=== PATIENT | female | born 1950 | race Caucasian/White ===

== ENCOUNTER 2018-01-19 23:52 | Emergency (ER) | payer OTHER ==
[~2018-01-19] VITALS: Ht 165.1 cm; Wt 55.0 kg
[2018-01-19 23:59] VITALS: Ht 165.1 cm; Wt 55.0 kg
[2018-01-20] MEDS ORDERED: ADVIN10/60 INH (00:10)
[2018-01-20] MEDS ORDERED: SUMA100T16 PO (00:11)
[2018-01-20 00:15] VITALS: O2SAT 98
[2018-01-20] MEDS ORDERED: ACETAMINOPHEN 1000 MG/100 ML IV IV ONE (00:24)
[2018-01-20 00:27] LABS: BASO % 0.2 %; BASO ABS # 0.01 K/uL (0-0.2); EOS % 1.9 %; HEMATOCRIT 37.8 % (37-47); HEMOGLOBIN 13.5 g/dL (12.0-16.0); IG# 0.01 K/uL (0.00-0.02); LYMPH ABS # 1.53 K/uL (1.2-3.4); MEAN CELL VOLUME 89.2 fL (80-100); MEAN CORPUSCULAR HEMOGLOBIN 31.8 pg (25-34); MEAN CORPUSCULAR HGB CONC 35.7 g/dl (32-36); MEAN PLATELET VOLUME 9.2 fL (7.4-10.4); MONO % 8.7 %; MONO ABS # 0.46 K/uL (0.11-0.59); NEUT ABS # 3.17 K/uL (1.4-6.5); PLATELET COUNT 253 K/uL (130-400); RED CELL DISTRIBUTION WIDTH SD 38.6 fL (36.4-46.3); WHITE BLOOD COUNT 5.28 K/uL (4.8-10.8)
[2018-01-20] MEDS ORDERED: KETOROLAC TROMETHAMINE 15 MG/ML VIAL IV ONE (00:30)
[2018-01-20] MEDS ORDERED: ACETAMINOPHEN IV 1,000 MG in EMPTY BAG 0 ML IV ONE (00:30)
[2018-01-20] MEDS ORDERED: SODIUM CHLORIDE 0.9% 1000ML 1,000 ML IV ONE ×2 (00:30)
[2018-01-20 00:58] LABS: ALBUMIN 3.4 gm/dl (3.4-5.0); ALKALINE PHOSPHATASE 74 U/L (45-117); ALT/SGPT 25 U/L (12-78); AST/SGOT 21 U/L (15-37); BLOOD UREA NITROGEN 11 mg/dl (7-18); CALCIUM 8.5 mg/dl (8.5-10.1); CARBON DIOXIDE 23 mmol/L (21-32); CREATININE 0.85 mg/dl (0.60-1.20); GLUCOSE 100 mg/dl (70-99); POTASSIUM 3.5 mmol/L (3.5-5.1); SODIUM 135 mmol/L (136-145); TOTAL PROTEIN 7.1 gm/dl (6.4-8.2)
[2018-01-20] MEDS ORDERED: OPTIRAY 320 IV PRN (01:30)
[2018-01-20 01:45] VITALS: TEMP 36.7
[2018-01-20 02:35] VITALS: BP 132/76; PULSE 79; O2SAT 99
--- NOTE | 2018-01-20 06:15 | EMERGENCY ROOM VISIT NOTE ---
History First contact with patient: 00:04 Chief Complaint: FLU LIKE SX Stated Complaint: FLU LIKE SYMPTOMS History of Present Illness The patient is a 67 year old female who presents to the Emergency Room with complaints of malaise and fatigue after being diagnosed with influenza B6 days ago. The patient states that she was feeling unwell about 7 days ago, and the began running a low-grade fever at home. She went to an urgent care clinic in [place] and was diagnosed with influenza B. The patient has been taking ibuprofen and Tylenol fairly regularly since the diagnosis. She has been hydrating well, but still feels like she has a dry mouth. She began having some difficulty breathing today, and began using her Advair inhaler. She does have a history of COPD. The patient has not had fever or chills for the past few days. She does not have sinus congestion, ear pain, sore throat, coughing, or wheezing. No abdominal pain. She considers herself usually healthy and is concerned something else may be wrong. She rates her discomfort an 8/10. Review of Systems More than 10 systems were reviewed and otherwise negative with the exception of history of present illness. Past Medical/Surgical History History of COPD Family History No pertinent family history Social History Housing Status: lives alone Current/Historical Medications Scheduled Sumatriptan Succinate (Imitrex), 100 MG PO PRN Scheduled PRN Fluticasone Prop/Salmeterol (Advair Diskus 100/50 60 Dose), 1 PUFFS INH BID PRN for SOB/Wheezing Physical Exam Vital Signs Date Time Temp Pulse Resp B/P (MAP) Pulse Ox O2 Delivery O2 Flow Rate FiO2 01/20/18 02:35 79 18 132/76 99 01/20/18 01:45 36.7 81 18 142/79 100 Room Air 01/20/18 00:25 71 01/20/18 00:15 98 Room Air 01/19/18 23:59 36.6 77 20 148/86 100 Room Air Physical Exam VITALS: Vitals are noted on the nurse's note and reviewed by myself. Vital signs stable. GENERAL: Well-developed, well-nourished, white female, who is in no acute distress and resting comfortably. Patient is cooperative with the examination. HEAD: Normocephalic atraumatic. EARS: External ear normal. External auditory canals clear, tympanic membranes pearly silverio without erythema or effusion bilaterally. EYES: Pupils equal round and reactive to light and accommodation. Conjunctivae without injection, sclerae without icterus. Extraocular movements intact. NOSE: Patent, turbinates without inflammation or discharge. MOUTH: Mucous membranes moist. Tonsils are not enlarged. Pharynx without erythema, blood, or exudate. Uvula midline. Airway patent. NECK: Supple without nuchal rigidity. No lymphadenopathy. No thyromegaly. Cervical spine is nontender. HEART: Regular rate and rhythm without murmurs gallops or rubs. LUNGS: Clear to auscultation bilaterally without wheezes, rales or rhonchi. No retractions or accessory muscle use. ABDOMEN: Positive normal bowel sounds x 4. Soft, nontender, without masses or organomegaly. No guarding or rebound tenderness. Medical Decision & Procedures ER Provider Diagnostic Interpretation: Preliminary Findings Only See Final Report For Complete Findings CTA CHEST: Peribronchial thickening without infiltrate No PE Laboratory Results 01/20/18 00:15 Red Blood Count 4.24, Mean Corpuscular Volume 89.2, Mean Corpuscular Hemoglobin 31.8, Mean Corpuscular Hemoglobin Concent 35.7, Mean Platelet Volume 9.2, Neutrophils (%) (Auto) 60.0, Lymphocytes (%) (Auto) 29.0, Monocytes (%) (Auto) 8.7, Eosinophils (%) (Auto) 1.9, Basophils (%) (Auto) 0.2, Neutrophils # (Auto) 3.17, Lymphocytes # (Auto) 1.53, Monocytes # (Auto) 0.46, Eosinophils # (Auto) 0.10, Basophils # (Auto) 0.01 01/20/18 00:15 Test 01/20/18 00:15 01/20/18 00:47 White Blood Count 5.28 K/uL (4.8-10.8) Red Blood Count 4.24 M/uL (4.2-5.4) Hemoglobin 13.5 g/dL (12.0-16.0) Hematocrit 37.8 % (37-47) Mean Corpuscular Volume 89.2 fL (80-100) Mean Corpuscular Hemoglobin 31.8 pg (25-34) Mean Corpuscular Hemoglobin Concent 35.7 g/dl (32-36) Platelet Count 253 K/uL (130-400) Mean Platelet Volume 9.2 fL (7.4-10.4) Neutrophils (%) (Auto) 60.0 % Lymphocytes (%) (Auto) 29.0 % Monocytes (%) (Auto) 8.7 % Eosinophils (%) (Auto) 1.9 % Basophils (%) (Auto) 0.2 % Neutrophils # (Auto) 3.17 K/uL (1.4-6.5) Lymphocytes # (Auto) 1.53 K/uL (1.2-3.4) Monocytes # (Auto) 0.46 K/uL (0.11-0.59) Eosinophils # (Auto) 0.10 K/uL (0-0.5) Basophils # (Auto) 0.01 K/uL (0-0.2) RDW Standard Deviation 38.6 fL (36.4-46.3) RDW Coefficient of Variation 12.0 % (11.5-14.5) Immature Granulocyte % (Auto) 0.2 % Immature Granulocyte # (Auto) 0.01 K/uL (0.00-0.02) D-Dimer 850 ug/L FEU (0-500) Anion Gap 9.0 mmol/L (3-11) Est Creatinine Clear Calc Drug Dose 55.8 ml/min Estimated GFR () 82.2 Estimated GFR (Non- 70.9 BUN/Creatinine Ratio 12.9 (10-20) Calcium Level 8.5 mg/dl (8.5-10.1) Magnesium Level 2.1 mg/dl (1.8-2.4) Total Bilirubin 0.5 mg/dl (0.2-1) Aspartate Amino Transf (AST/SGOT) 21 U/L (15-37) Alanine Aminotransferase (ALT/SGPT) 25 U/L (12-78) Alkaline Phosphatase 74 U/L (45-117) Troponin I < 0.015 ng/ml (0-0.045) Total Protein 7.1 gm/dl (6.4-8.2) Albumin 3.4 gm/dl (3.4-5.0) Globulin 3.7 gm/dl (2.5-4.0) Albumin/Globulin Ratio 0.9 (0.9-2) Lyme Disease IgG Antibody NEG (NEG) Lyme Disease IgM Antibody NEG (NEG) Urine Color YELLOW Urine Appearance CLEAR (CLEAR) Urine pH 7.0 (4.5-7.5) Urine Specific [place] 1.007 (1.000-1.030) Urine Protein NEG (NEG) Urine Glucose (UA) NEG (NEG) Urine Ketones NEG (NEG) Urine Occult Blood NEG (NEG) Urine Nitrite NEG (NEG) Urine Bilirubin NEG (NEG) Urine Urobilinogen NEG (NEG) Urine Leukocyte Esterase TRACE (NEG) Urine WBC (Auto) 0 /hpf (0-5) Urine RBC (Auto) 0-4 /hpf (0-4) Urine Hyaline Casts (Auto) 0 /lpf (0-5) Urine Epithelial Cells (Auto) 0-5 /lpf (0-5) Urine Bacteria (Auto) NEG (NEG) Medications Administered Medications (Trade) Dose Ordered Sig/Camryn Route Start Time Stop Time Status Last Admin Dose Admin Sodium Chloride 1,000 ml @ 999 mls/hr Q1H1M ONCE IV 01/20/18 00:30 01/20/18 01:30 DC 01/20/18 00:23 999 MLS/HR Sodium Chloride 1,000 ml @ 999 mls/hr Q1H1M ONCE IV 01/20/18 00:30 01/20/18 01:30 DC 01/20/18 00:24 999 MLS/HR Acetaminophen 1000 mg/Empty Bag 100 ml @ 400 mls/hr NOW ONCE IV 01/20/18 00:30 01/20/18 00:44 DC 01/20/18 00:25 400 MLS/HR ED Course Physical exam and history were performed. Nursing notes, EMR, and Medication List were personally reviewed. Patient appears to have flulike symptoms for the past week. The patient has been taking ibuprofen and Tylenol at home, but has not had some for several hours. IV access was established and labs are obtained. The patient was hydrated and medicated as above. Chest x-ray was performed because she does have a history of COPD. The patient's blood work is as above and was reviewed. She does not have a significantly elevated white blood cell count, gross anemia, bandemia, or significant electrolyte imbalance. Transaminases are not diagnostic. Her chest x-ray was reviewed by myself and does not show significant acute process with radiology read pending. EKG was performed and did not show evidence of acute cardiac event. Troponin 1 is negative. Her d-dimer was elevated, and I did elect perform a CT scan to better evaluate her findings. CT scan does not show evidence of acute pulmonary embolism or other findings to explain her symptoms. Overall the patient appears well for discharge home. I suspect that this is the sequela of her influenza diagnosis and she should do well with conservative care. Of note the patient was able to sleep here in the ER very comfortably and continued to remain nontoxic. The patient was asked to follow with her primary care physician in the next few days for recheck. She was otherwise invited back to the ER with any new, worsening, or concerning symptoms. The chart was completed utilizing [employer] Speech Voice Recognition Software. Grammatical errors, random word insertions, pronoun errors, and incomplete sentences are an occasional consequence of this system due to software limitations, ambient noise, and hardware issues. Any formal questions or concerns about the content, text, or information contained within the body of this dictation should be directly addressed to the provider for clarification. . Medical Decision Differential diagnosis: Etiologies such as viral syndrome, otitis, pharyngitis, pneumonia, influenza, meningitis, urinary tract infection, sepsis, bacteremia, as well as others were entertained. Impression Primary Impression: Influenza-like symptoms Departure Information Dispostion Home / Self-Care Condition GOOD Referrals No Doctor, Assigned (PCP) Forms HOME CARE DOCUMENTATION FORM, IMPORTANT VISIT INFORMATION Patient Instructions My [facility] Additional Instructions You were seen and evaluated today on an emergency basis only. This is not a substitute for, or an effort to provide, complete comprehensive medical care. It is not possible to recognize and treat all injuries or illnesses in a single emergency department visit. For this reason it is recommended that you followup with your primary care physician this week for recheck of your condition. For baseline pain relief you may alternate ibuprofen and acetaminophen every 4 hours for pain control. Take 600 mg ibuprofen (Advil) and then 4 hours later take 1000 mg acetaminophen (Tylenol). Do not take more than 3000 mg acetaminophen in a single day. Drink plenty of fluids and remain well-hydrated. You are welcome to return to the emergency department anytime with new, worsening, or concerning symptoms.
--- NOTE | 2018-01-20 07:10 | DIAGNOSTIC IMAGING REPORT ---
CHEST CTA for PULMONARY ARTERIES CT DOSE: 188.17 mGy.cm HISTORY: Short of breath. Elevated d-dimer. TECHNIQUE: Multiaxial CT images of the chest were performed following the intravenous administration of contrast to evaluate the pulmonary arteries. Maximal intensity projection images were also obtained. A dose lowering technique was utilized adhering to the principles of ALARA. COMPARISON STUDY: Chest 06/29/2016. FINDINGS: The visualized liver and spleen are unremarkable. No evidence for an aortic dissection. No pleural or pericardial effusions. No filling defects within the pulmonary arteries to suggest pulmonary embolus. No pneumothorax. Mild right apical pleural-parenchymal scarring. Mild bronchial wall thickening. A few scattered peripheral tree-in-bud nodular opacities seen within the left lower lobe and lingula. Mosaic attenuation within the lungs suggestive of mild air trapping. No focal lung consolidations to suggest pneumonia. No suspicious lytic or blastic osseous lesions. No mediastinal or hilar lymphadenopathy. IMPRESSION: 1. No evidence for pulmonary embolus. 2. Mild bronchial wall thickening with air trapping suggestive of small airways disease. 3. A few peripheral tree-in-bud nodular opacities seen within the left lower lobe and lingula. This suggests a mild infectious bronchiolitis. This could be chronic. Electronically signed by: Enoch Cruz M.D. 01/20/2018 7:08 AM Dictated Date/Time: 01/20/2018 7:03 AM
--- NOTE | 2018-01-20 08:07 | DIAGNOSTIC IMAGING REPORT ---
CHEST 2 VIEWS ROUTINE HISTORY: Short of breath. Flulike symptoms. COMPARISON: Chest 06/29/2016. FINDINGS: The lungs are clear. Cardiac silhouette is normal in size. No pleural effusions. No pneumothorax. Lungs are hyperexpanded with mild apical predominant emphysematous changes. IMPRESSION: No significant change compared to the prior study. No acute process. Electronically signed by: Enoch Cruz M.D. 01/20/2018 8:06 AM Dictated Date/Time: 01/20/2018 8:05 AM
== END 2018-01-20 02:35 | disposition home or self-care (01) ==
LOC: C.EDB 23:54 → C.EDA 01-20 02:35
DX: J10.1 Influenza due to other identified influenza virus with other respiratory manifestations (principal); R79.1 Abnormal coagulation profile; J44.9 Chronic obstructive pulmonary disease, unspecified

== ENCOUNTER → 2018-04-11 | Outpatient (CLI) | payer OTHER ==
[~2018-04-11] MED LIST: ADVIN10/60 INH; GADAVIST IV PRN; SUMA100T16 PO
--- NOTE | 2018-04-11 11:06 | DIAGNOSTIC IMAGING REPORT ---
MRI OF THE CERVICAL SPINE COMBO CLINICAL HISTORY: Left-sided neck and shoulder pain. COMPARISON STUDY: No priors. TECHNIQUE: MRI of the cervical spine is performed utilizing various T1 and T2 weighted sequences in the axial and sagittal planes. Contrast-enhanced sequences are acquired following the IV administration of 5.5 mL of Gadavist. FINDINGS: Cervical spine: Vertebral body height and alignment are maintained throughout the cervical spine. Normal marrow signal intensity is preserved throughout the visualized bony structures. The atlantodental articulation appears maintained. The spinous processes are intact. Intervertebral discs: There is mild degenerative disc desiccation seen throughout the cervical spine. Minimal loss of height is seen at C5-C6 and C6-C7. Spinal cord: The cervical spinal cord is normal in morphology and signal intensity. No abnormal postcontrast enhancement is identified. C2-C3: Unremarkable. C3-C4: Mild facet arthropathy is of no consequence. The central canal and neural foramina are patent. C4-C5: There is a broad-based posterior disc bulge eccentric to the right. This abuts the ventral cord. Uncovertebral and facet arthropathy cause mild to moderate right and minimal left neural foraminal stenosis. C5-C6: A posterior disc osteophyte complex effaces the ventral subarachnoid space. Uncovertebral and facet arthropathy cause moderate to severe left and mild right neural foraminal stenosis. C6-C7: A posterior disc osteophyte complex abuts the ventral cord. Uncovertebral and facet arthropathy cause mild bilateral neural foraminal stenosis. C7-T1: Unremarkable. Soft tissues: The prevertebral and paraspinous soft tissues are normal as visualized. Brain parenchyma: The partially imaged brain parenchyma at the skull base is normal in appearance. IMPRESSION: 1. Mild multilevel cervical spondylosis as detailed above, greatest from C4-C5 through C6-C7. See discussion for level by level analysis. 2. The cervical spinal cord is normal in morphology and signal intensity. 3. No destructive bony process is seen. Dictated: 04/11/2018 10:55 AM Transcribed: 04/11/2018 11:06 AM Alyssa Electronically signed by: Mann Valdez M.D. 04/11/2018 11:11 AM Dictated Date/Time: 04/11/2018 10:55 AM
== END | disposition home or self-care (01) ==
LOC: C.MRI 09:43
PROVIDERS: ATTEND Family Medicine
DX: M15.9 Polyosteoarthritis, unspecified (principal); M47.812 Spondylosis without myelopathy or radiculopathy, cervical region